=== PATIENT | female | born 1980 | race Hispanic/Latino ===

== ENCOUNTER 2023-01-08 17:50 | Emergency (ER) | payer OTHER, SELFPAY ==
[2023-01-08 17:58] VITALS: BP 154/92; PULSE 111; RESP 18; TEMP 38.5; O2SAT 98; BMI 37.8
[2023-01-08 19:02] LABS: Influenza A - CEPHEID Flu A NEGATIVE (NEGATIVE); Influenza B - CEPHEID Flu B NEGATIVE (NEGATIVE); Respiratory Syncytial Virus Negative (Negative)
--- NOTE | 2023-01-08 19:07 | ED_ITS ---
HPI - General Adult General Chief complaint: Fever Stated complaint: Fever, Head pain Time Seen by Provider: 01/08/23 18:05 Source: patient Mode of arrival: Ambulatory History of Present Illness HPI narrative: 42-year-old female nonsmoker with noncontributory medical history presents with a fever since yesterday as well as sore throat, cough and body aches. She has a mild headache but no blurred vision or trouble with speech. Her throat is sore but she denies any difficulty swallowing. She has no chest pain or shortness of breath. She denies nausea or vomiting and has no abdominal pain. She denies dysuria, frequency or urgency and had at least 1 episode of diarrhea Related Data Allergies Allergy/AdvReac Type Severity Reaction Status Date / Time No Known Drug Allergies Allergy Verified 01/08/23 18:05 Review of Systems Review of Systems Narrative: GENERAL: See HPI HEENT: See HPI RESPIRATORY: See HPI CARDIOVASCULAR: Denies chest pain, palpitations, orthopnea, edema, GASTROINTESTINAL: See HPI : Denies dysuria, frequency, incontinence, hematuria, urinary retention. MUSCULOSKELETAL: denies weakness, joint pain, or bony pain SKIN: Denies rash, skin lesions, or other NEUROLOGIC: Denies weakness, headache, numbness, change in speech, confusion, seizures, incoordination. PSYCHIATRIC: No concerning psychosocial issues. 12 point review of systems is negative except for those stated above Patient History Social History Smoking Status: Never smoker Smoking Status: Never smoker alcohol intake frequency: 0-2 drinks per day Substance Use Type: does not use Exam Narrative Exam Narrative: GEN: AOx3 and in mild distress EYES: Pupils are equal, round, and reactive to light and accommodation. Extraoccular muscles are intact bilaterally. There is no subconjunctival hemorrhage or exudate. CHEST: Lungs are clear to auscultation bilaterally and free of wheezes, rales, or rhonchi. Heart rate is regular rhythm, there are no murmurs, clicks, rubs, or gallops. There is no chest wall tenderness. ABD: Abdomen is soft and nontender. There is no guarding or rebound. Bowel sounds are normal in all 4 quadrants. There is no mass or organomegaly. EXT: Full painless ROM of all extremities with no loss of sensation or strength. SKIN: Warm, pink, and dry. No erythema or rash Initial Vital Signs Initial Vital Signs: Vital Signs Temperature 101.3 F H 01/08/23 17:58 Pulse Rate 111 H 01/08/23 17:58 Respiratory Rate 18 01/08/23 17:58 Blood Pressure 154/92 H 01/08/23 17:58 Pulse Oximetry 98 01/08/23 17:58 Oxygen Delivery Method Room Air 01/08/23 17:58 Course Orders Ordered: Discontinued Medications Ibuprofen (Ibuprofen 400 Mg Tablet) 800 mg PO NOW ONE Stop: 01/08/23 19:08 Last Admin: 01/08/23 19:20 Dose: 800 mg Documented By: WERNER Vital Signs Vital signs: Vital Signs - 8 hr 01/08/23 17:58 Temperature 101.3 F H Pulse Rate 111 H Respiratory Rate 18 Blood Pressure 154/92 H Pulse Oximetry 98 Oxygen Delivery Method Room Air Medical Decision Making Lab Data Labs: Lab Results 01/08/23 Range/Units 18:18 SARS-CoV-2 (PCR) Positive H (Negative) Influenza A (RT-PCR) Flu a negative (NEGATIVE) Influenza B (RT-PCR) Flu b negative (NEGATIVE) RSV (PCR) Negative (Negative) MDM Narrative Medical decision making narrative: [42] year old patient presents with various upper respiratory symptoms Multiple etiologies for patient's symptoms considered including, but not limited to: [COVID versus other] Prior Charts reviewed in our EMR Primary Historian: patient Labs reviewed and interpreted by myself: COVID positive Patient's symptoms improved over duration of stay with above-stated therapies. Tolerating orals, no significant work of breathing, hypoxemia or use of accessory muscles Findings and discharge diagnosis discussed with patient/family followed by verbalization of understanding Return precautions discussed with patient/family whom verbalize understanding of diagnosis and plan Discharge Plan Departure Patient Disposition: Home Clinical Impression: COVID-19 Instructions: COVID-19 Activity Restrictions/Additional Instructions: *You have been diagnosed with [ COVID-19] *What to do: ?* per recommendations from the CDC and the [facility] Department of Health ?* stay home except to get medical care. ?Restrict activities outside your home, except for getting medical care. ?Do not go to work, school, or public areas. ?Avoid using public transportation, ride sharing, or taxis. ?* separate yourself from other people in your home. ?* call ahead before visiting your doctor ?* Wear a facemask ?* Cover your coughs and sneezes ?* Clean your hands often ?* Avoid sharing household items ?* Clean all high-touch services every day ?* Monitor your symptoms and seek prompt medical attention if your illness is worsening, particularly with difficulty in breathing. You may discontinue your isolation when: ?1. You have been fever-free for at least 24 hours without the use of fever reducing medication, AND ?2. Your symptoms are getting better, AND ?3. At least 5 days have passed since symptoms first appeared ?4. If you have fever, continue to stay home until fever resolves Individuals with laboratory confirmed COVID-19 who have not had any symptoms may discontinue home isolation when at least 5 days have passed since the date of their first COVID-19 diagnostic test and have had no subsequent illness You should notifiy any friends and family that have been in close contact *If up to date on COVID Vaccines, then they do not need to quarantine unless symptoms develop. Get tested on day 5 (or sooner if symptoms develop). Take precautions and watch for symptoms until day 10 *If NOT up to date on COVID Vaccines, then CDC recommends quarantine for at least 5 full days. Wear a well fitted mask at home if you must be around others. If they ?develop symptoms they should get tested. If they remain asymptomatic they should get tested on day 5. They should take precautions and monitor for symptoms until day 10. Referrals: Gonzalez Luke ARNP [Primary Care Provider] - Stand Alone Forms: Patient Portal/API
[2023-01-08 19:10] LABS: COVID-19 CEPHEID 4-PLEX PCR POSITIVE (Negative)
[2023-01-08] MEDS: IBUPROFEN 400 MG TABLET 800 MG PO (19:20)
== END 2023-01-08 19:21 | disposition home or self-care (01) ==
PROVIDERS: Emergency Provider Emergency Medicine; PCP Registered Nurse
DX: U07.1 COVID-19 (principal)
CPT/HCPCS: 0241U; 99282; 99283